=== PATIENT | male | born 2000 | race African-American/Black ===

== ENCOUNTER 2021-10-07 10:50 | Emergency (ER) | payer SELFPAY ==
[~2021-10-07] VITALS: Ht 177.8 cm; Wt 105.0 kg
[~2021-10-07 10:50] MED LIST: ALBUTEROL0.5 %; AMOXICILLI200 MG/5 M OR; AMOXICILLI250 MG/5 M OR; AMOXICILLIN500 MG PO; AMOXIL400 MG/5 M OR; AUGMENTIN400 MG/5 M OR; MEDDOSEPAK PO; MOTRIN, CH20 MG/1 ML OR; NO; NONE AT THIS TIME; PROMETHAZINE25 MG RE; TYLENOL & COD12.5 ML OR; TYLENOL CHL1 OR; ZITHROMAX500 MG PO; ZYRTEC10 MG OR; [UNRECOGNIZED DRUG - OTHER]; [UNRECOGNIZED DRUG - REMARK]
[2021-10-07 11:51] LABS: HEMATOCRIT 41.9 % (39.0-50.0); HEMOGLOBIN 13.8 g/dl (14.0-18.0); IMMATURE GRANULOCYTES 0.6 % (0.0-5.0); MEAN CELL VOLUME 83.3 fL CALC (80.0-100.0); MEAN CORPUSCULAR HGB 27.4 pG CALC (26.0-32.0); MEAN CORPUSCULAR HGB CONC 32.9 g/dL CAL (32.0-36.0); NEUT# 3.72 thou/uL (1.82-7.42); RED BLOOD COUNT 5.03 mill/uL (4.70-6.10); RED CELL DISTRI WIDTH 11.1 % (11.5-15.5)
[2021-10-07 12:16] LABS: ALBUMIN 4.3 g/dL (3.2-5.0); ALKALINE PHOSPHATASE 138 u/l (38-126); ANION GAP 12 (6-22 (CALC)); BUN 17 mg/dL (9-20); BUN/CREATININE RATIO 20 (12-20 (CALC)); CARBON DIOXIDE 29 mmol/l (22-30); CHLORIDE 98 mmol/l (95-108); CREATININE 0.8 mg/dL (0.7-1.3); GFR > 60 ML/MIN (>=60 (CALC)); GFR FOR AFR.AMER. > 60 ML/MIN (>=60 (CALC)); POTASSIUM 4.1 mmol/l (3.5-5.1); SGOT/AST 31 u/l (17-59); SODIUM 134 mmol/l (137-146); TOTAL PROTEIN 7.8 g/dL (6.3-8.2)
[2021-10-07 12:36] LABS: BILIRUBIN, TOTAL 0.6 mg/dL (0.0-1.4)
[2021-10-07] MEDS ORDERED: METFORMIN HCL500 M2 PO (13:07)
[2021-10-07 13:38] VITALS: BP 117/71
== END 2021-10-07 13:38 | disposition home or self-care (01) | DRG 639 ==
LOC: ED 10:50
PROVIDERS: Emergency Medicine
DX: E11.65 Type 2 diabetes mellitus with hyperglycemia (principal)

== ENCOUNTER 2022-01-14 22:44 | Emergency (ER) | payer OTHER ==
[~2022-01-14] VITALS: Ht 177.8 cm; Wt 100.0 kg
[~2022-01-14 22:44] MED LIST changes: +METFORMIN HCL500 M2 PO
[2022-01-14 22:52] VITALS: BP 138/83
[2022-01-14 23:00] VITALS: BP 138/86
[2022-01-14] MEDS ORDERED: ALBUTEROL108 MCG/AC (23:13)
[2022-01-14] MEDS ORDERED: SYMBICORT1 AE1 IN (23:14)
[2022-01-14 23:15] VITALS: BP 126/81
[2022-01-14] MEDS ORDERED: CETIRIZINE10 MG PO (23:15)
[2022-01-14 23:30] VITALS: BP 119/80
== END 2022-01-15 00:10 | disposition home or self-care (01) ==
LOC: ED 22:44
DX: S00.93XA Contusion of unspecified part of head, initial encounter (principal); S50.02XA Contusion of left elbow, initial encounter; E11.9 Type 2 diabetes mellitus without complications; Y00.XXXA Assault by blunt object, initial encounter; Z79.84 Long term (current) use of oral hypoglycemic drugs

== ENCOUNTER 2022-10-12 05:54 | Emergency (ER) | payer OTHER ==
[~2022-10-12] VITALS: Ht 177.8 cm; Wt 103.6 kg
[~2022-10-12 05:54] MED LIST changes: +ALBUTEROL108 MCG/AC; +CETIRIZINE10 MG PO; +SYMBICORT1 AE1 IN
[2022-10-12] MEDS ORDERED: VOLTAREN75 MG PO (06:42)
[2022-10-12 07:35] VITALS: BP 136/74
== END 2022-10-12 07:51 | disposition home or self-care (01) ==
LOC: ED 05:54
DX: M25.561 Pain in right knee (principal); J45.909 Unspecified asthma, uncomplicated; E66.9 Obesity, unspecified; Z79.84 Long term (current) use of oral hypoglycemic drugs

== ENCOUNTER 2023-10-26 09:46 | Emergency (ER) | payer OTHER ==
[2023-10-26] VITALS (7 sets, daily range): BP systolic 107–129; BP diastolic 69–76
[~2023-10-26] VITALS: Ht 180.3 cm; Wt 95.2 kg
[~2023-10-26 09:46] MED LIST changes: +METFORMIN HCL1000 M1 PO; +VOLTAREN75 MG PO
[2023-10-26] MEDS ORDERED: NAPROXEN500 MG PO (11:35)
== END 2023-10-26 11:45 | disposition home or self-care (01) ==
LOC: ED 09:46
DX: R51.9 Headache, unspecified (principal); E11.9 Type 2 diabetes mellitus without complications; J45.909 Unspecified asthma, uncomplicated; E66.9 Obesity, unspecified; Z20.822 Contact with and (suspected) exposure to COVID-19

== ENCOUNTER 2024-09-05 17:30 | Emergency (ER) | payer SELFPAY ==
[~2024-09-05] VITALS: Ht 180.3 cm; Wt 93.0 kg
[~2024-09-05 17:30] MED LIST changes: +METFORMIN HYD1000 MG PO; +METHOCARBAMOL500 MG PO; +NAPROXEN500 MG PO; +OZEMPIC2 MG SC; +PERCOCET 5/321 COMBO PO
[2024-09-05 18:37] VITALS: BP 122/76
== END 2024-09-05 19:36 | disposition home or self-care (01) | DRG 563 ==
LOC: ED 17:30
DX: S63.616A Unspecified sprain of right little finger, initial encounter (principal); E11.9 Type 2 diabetes mellitus without complications; E66.9 Obesity, unspecified; J45.909 Unspecified asthma, uncomplicated; W21.05XA Struck by basketball, initial encounter; Z79.84 Long term (current) use of oral hypoglycemic drugs; Z79.85 Long-term (current) use of injectable non-insulin antidiabetic drugs